=== PATIENT | male | born 1945 | race Caucasian/White ===

== ENCOUNTER 2018-11-26 09:48 | Emergency (ER) | payer OTHER, MEDICARE ==
[2018-11-26 10:08] VITALS: TEMP 98.5; BMI 27.8
[2018-11-26 11:37] LABS: BASO % 0.6 % (0-2.0); EOS % 1.8 % (0-4.5); HEMATOCRIT 40.9 % (35.4-49); HEMOGLOBIN 14.4 GM/dL (11.7-16.9); LYMPH % 18.9 % (8-40); MCH 32.8 pg (25.7-33.7); MCHC 35.3 g/dl (32.0-35.9); MEAN PLT VOLUME 9.1 fl (7.5-11.1); MONO % 7.6 % (3.8-10.2); NEUT % 71.1 % (42.8-82.8); PLATELET COUNT 200 K/MM3 (134-434); RDW 14.4 % (11.9-15.9); WHITE BLOOD COUNT 7.4 K/mm3 (4.0-10.0)
[2018-11-26 11:40] LABS: URINE APPEARANCE CLEAR; URINE BILIRUBIN NEGATIVE (<2.0 mg/dL); URINE COLOR LTYELLOW; URINE GLUCOSE (UA) NEGATIVE (NEGATIVE); URINE KETONE NEGATIVE (NEGATIVE); URINE LEUK ESTERASE NEGATIVE (NEGATIVE); URINE NITRITE NEGATIVE (NEGATIVE); URINE PROTEIN NEGATIVE (NEGATIVE); URINE UROBILINOGEN NEGATIVE mg/dL (0.2-1.0)
--- NOTE | 2018-11-26 12:11 | PDOC ---
History of Present Illness - General Chief Complaint: Pain, Acute Stated Complaint: ABD PAIN Time Seen by Provider: 11/26/18 10:30 History Source: Patient Exam Limitations: No Limitations - History of Present Illness Travel History: No Initial Comments: 11/26/18 12:02 73-year-old male with history of bleeding ulcer presents to ED with complaints of left lower quadrant intermittent sharp cramping pain for the past 4 days without associated symptoms such as nausea vomiting diarrhea constipation, fever , chills or urinary complaints. Patient states last bowel movement was 2 days ago in normal consistency. Patient denies GI surgery for bleeding ulcer. 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 Patient also states history of H. pylori gastritis and hypertension Timing/Duration: reports: intermittent Quality: reports: mild, cramping Abdominal Pain Onset Location: reports: LLQ Pain Radiation: reports: no radiation Activities at Onset: reports: none Aggravating Factors: improves with: None Alleviating Factors: improves with: None Past History - Travel Traveled outside of the country in the last 30 days: No Close contact w/someone who was outside of country & ill: No - Past Medical History Allergies/Adverse Reactions: Allergies Allergy/AdvReac Type Severity Reaction Status Date / Time pseudoephedrine HCl Allergy Verified 11/26/18 10:43 [From Brian] Home Medications: Ambulatory Orders NK [No Known Home Medication] 11/26/18 Anemia: Yes Asthma: No Cancer: No Cardiac Disorders: No CVA: No COPD: No CHF: No Dementia: No Diabetes: No GI Disorders: Yes (ULCER,GASTRITIS, H.PYLORI) Disorders: No HTN: Yes Hypercholesterolemia: No Kidney Stones: Yes (?) Liver Disease: No Seizures: No Thyroid Disease: No - Surgical History Abdominal Surgery: No Appendectomy: No Cardiac Surgery: No Cholecystectomy: No Lung Surgery: No Neurologic Surgery: No Orthopedic Surgery: Yes (RIGHT SHOULDER) - Suicide/Smoking/Psychosocial Hx Smoking Status: Yes Smoking History: Never smoked Have you smoked in the past 12 months: No Number of Cigarettes Smoked Daily: 0 If you are a former smoker, when did you quit?: 2000 Information on smoking cessation initiated: No Hx Alcohol Use: No Drug/Substance Use Hx: No Substance Use Type: None Hx Substance Use Treatment: No *Physical Exam - Vital Signs Last Vital Signs Temp Pulse Resp BP Pulse Ox 98.5 F 74 16 165/89 100 11/26/18 10:06 11/26/18 10:06 11/26/18 10:06 11/26/18 10:06 11/26/18 10:06 Moderate Sedation - Procedure Monitoring Vital Signs: Procedure Monitoring Vital Signs Temperature 98.5 F 11/26/18 10:06 Pulse Rate 74 11/26/18 10:06 Respiratory Rate 16 11/26/18 10:06 Blood Pressure 165/89 11/26/18 10:06 O2 Sat by Pulse Oximetry (%) 100 11/26/18 10:06 ED Treatment Course - LABORATORY CBC & Chemistry Diagram: 11/26/18 11:10 11/26/18 11:10 - RADIOLOGY Radiology Studies Ordered: Category Date Time Status ABDOMEN & PELVIS CT WITH CONTR [CT] Stat CT Scan 11/26/18 10:43 Ordered Medical Decision Making - Medical Decision Making 11/26/18 12:04 Chief complaint. Left lower quadrant pain without associated symptoms the past 4 days. Patient history of gastritis H. pylori and bleeding ulcer. Patient had renal ultrasound done approximately 2 weeks ago which showed a right renal cysts Exam: Patient left lower quadrant tenderness with deep palpation. No testicular involvement. No CVA tenderness. Plan: Urinalysis, CBC, comp and abdominal CT. 11/26/18 13:05 Laboratory Tests 11/26/18 11/26/18 11/26/18 11:10 11:10 11:10 WBC 7.4 Hgb 14.4 Hct 40.9 D Absolute Neuts (auto) 5.3 Neutrophils % 71.1 Sodium 140 Potassium 4.6 Chloride 107 Carbon Dioxide 28 Anion Gap 5 L BUN 22 H Creatinine 1.5 H Random Glucose 85 Total Bilirubin 1.0 AST 16 ALT 18 Albumin 3.8 Urine Ketones Negative Urine Nitrite Negative Ur Leukocyte Esterase Negative Patient ordered for 1 L of normal saline prior to CT for CT with IV contrast 11/26/18 15:07 Laboratory Tests 11/26/18 11/26/18 11/26/18 11:10 11:10 11:10 WBC 7.4 Hgb 14.4 Hct 40.9 D Absolute Neuts (auto) 5.3 Neutrophils % 71.1 Sodium 140 Potassium 4.6 Chloride 107 Carbon Dioxide 28 Anion Gap 5 L BUN 22 H Creatinine 1.5 H Random Glucose 85 Calcium 8.8 Total Bilirubin 1.0 AST 16 ALT 18 Alkaline Phosphatase 84 Total Protein 7.0 Albumin 3.8 Urine Ketones Negative Urine Nitrite Negative Ur Leukocyte Esterase Negative Post CT IVF infusing. *DC/Admit/Observation/Transfer Diagnosis at time of Disposition: Left lower quadrant abdominal tenderness - Discharge Dispostion Disposition: HOME Condition at time of disposition: Good - Referrals Referrals: Mario Alberto Carey [Primary Care Provider] - - Patient Instructions Printed Discharge Instructions: DI for Abdominal Pain-Adult Additional Instructions: Please drink plenty of fluids and eat a well balanced diet including high fiber fluid Follow up with your PMD and district customs director. - Post Discharge Activity Forms/Work/School Notes: Back to Work
[2018-11-26 12:17] LABS: ALBUMIN 3.8 g/dl (3.4-5.0); ALK PHOS 84 U/L (45-117); ANION GAP 5 MMOL/L (8-16); BLOOD UREA NITROGEN 22 mg/dL (7-18); CALCIUM 8.8 mg/dL (8.5-10.1); CHLORIDE 107 mmol/L (98-107); CO2 28 mmol/L (21-32); CREATININE 1.5 mg/dL (0.55-1.3); GLUCOSE,RANDOM 85 mg/dL (74-106); POTASSIUM 4.6 mmol/L (3.5-5.1); SGOT/AST 16 U/L (15-37); SGPT/ALT 18 U/L (13-61); SODIUM 140 mmol/L (136-145)
[2018-11-26] MEDS ORDERED: SODIUM CHLORIDE 1,000 ML IV STA ×2 (12:45→14:24)
[2018-11-26 15:40] VITALS: BP 181/97; PULSE 58
== END 2018-11-26 15:49 | disposition home or self-care (01) ==
LOC: JER 09:48
PROC: 3E0337Z Introduction of Electrolytic and Water Balance Substance into Peripheral Vein, Percutaneous Approach (ICD-10-PCS; principal; 2018-11-26)
DX: R10.814 Left lower quadrant abdominal tenderness (principal); R10.32 Left lower quadrant pain; Z87.19 Personal history of other diseases of the digestive system
CPT/HCPCS: 36415; 74177-TC; 80053; 81003; 85025; 87086; 96360; 96361; 99283-25; J7030

== ENCOUNTER 2021-05-25 15:23 | Emergency (ER) | payer OTHER, MEDICARE ==
[2021-05-25 15:30] VITALS: BMI 25.3
[2021-05-25 16:50] LABS: BASO % 0.5 % (0-2.0); EOS % 4.4 % (0-4.5); HEMATOCRIT 39.1 % (35.4-49); HEMOGLOBIN 13.6 GM/dL (11.7-16.9); LYMPH % 19.1 % (8-40); MCH 32.2 pg (25.7-33.7); MCHC 34.8 g/dl (32.0-35.9); MEAN CELL VOLUME 92.7 fl (80-96); MEAN PLT VOLUME 9.2 fl (7.5-11.1); MONO % 8.4 % (3.8-10.2); NEUT % 67.6 % (42.8-82.8); PLATELET COUNT 193 10^3/uL (134-434); RBC 4.22 M/mm3 (4.00-5.60); RDW 14.2 % (11.9-15.9)
[2021-05-25 16:57] LABS: VENOUS BASE EXCESS -1.9 mmol/L (-2-2); VENOUS O2 SATURATION 33.8 % (70-80); VENOUS PCO2 50.6 mmHg (38-52); VENOUS PH 7.31 (7.310-7.410)
[2021-05-25 17:19] LABS: ALBUMIN 3.5 g/dl (3.4-5.0); BLOOD UREA NITROGEN 28.5 mg/dL (7-18); CALCIUM 8.4 mg/dL (8.5-10.1)
[2021-05-25 17:22] LABS: CREATININE 1.6 mg/dL (0.55-1.3)
[2021-05-25 17:24] LABS: BILIRUBIN,TOTAL 0.5 mg/dL (0.2-1); TOT PROT 6.4 g/dl (6.4-8.2)
[2021-05-25 18:00] VITALS: BP 152/98; PULSE 85; TEMP 97.9
[2021-05-25] MEDS ORDERED: ALBUTEROL SO4 2.5/IPRATROPIUM 0.5 INH SOL 3 ML VIAL.NEB. NEB ONE ×3 (18:00→18:11)
[2021-05-25] MEDS ORDERED: ALBUTEROL SO4 HFA INHALER IH ONE ×3 (18:06→18:11)
== END 2021-05-25 18:43 ==
LOC: JER 15:23
PROC: 3E0F7GC Introduction of Other Therapeutic Substance into Respiratory Tract, Via Natural or Artificial Opening (ICD-10-PCS; principal; 2021-05-25)
DX: J01.80 Other acute sinusitis (principal)
CPT/HCPCS: 36415; 71046-TC-FY; 80053; 82803; 84484; 85025; 87804; 93005; 93010; 99285-25; C9803; U0003; U0005

== ENCOUNTER 2021-05-31 10:40 | Emergency (ER) | payer OTHER, MEDICARE ==
[2021-05-31 10:47] VITALS: TEMP 98; BMI 25.3
[2021-05-31] MEDS ORDERED: METOCLOPRAMIDE HCL INJECTION 10 MG/2 ML VIAL IVPB ONE (11:56)
[2021-05-31] MEDS ORDERED: SODIUM CHLORIDE 1,000 ML IV STA (11:56)
[2021-05-31] MEDS ORDERED: ACETAMINOPHEN 1000 MG/100 ML BAG IVPB ONE (11:56)
[2021-05-31] MEDS ORDERED: METOCLOPRAMIDE HCL INJECTION 10 MG/2 ML VIAL ONE (12:07)
[2021-05-31 12:26] LABS: BASO % 0.3 % (0-2.0); EOS % 0.3 % (0-4.5); HEMATOCRIT 37.9 % (35.4-49); HEMOGLOBIN 13.1 GM/dL (11.7-16.9); LYMPH % 19.7 % (8-40); MCH 31.7 pg (25.7-33.7); MCHC 34.5 g/dl (32.0-35.9); MEAN CELL VOLUME 91.7 fl (80-96); MEAN PLT VOLUME 8.9 fl (7.5-11.1); MONO % 9.6 % (3.8-10.2); NEUT % 70.1 % (42.8-82.8); PLATELET COUNT 222 10^3/uL (134-434); RBC 4.13 M/mm3 (4.00-5.60); RDW 14.4 % (11.9-15.9); WHITE BLOOD COUNT 12.7 K/mm3 (4.0-10.0)
[2021-05-31 12:32] LABS: INR 0.95 (0.83-1.09); PROTHROMBIN TIME (PATIENT) 11.7 SEC (9.7-13.0)
[2021-05-31 12:46] LABS: CALCIUM 8.4 mg/dL (8.5-10.1)
[2021-05-31 12:47] LABS: BLOOD UREA NITROGEN 32.1 mg/dL (7-18)
[2021-05-31 12:50] LABS: CREATININE 1.5 mg/dL (0.55-1.3)
[2021-05-31 12:51] LABS: BILIRUBIN,TOTAL 0.6 mg/dL (0.2-1)
[2021-05-31 12:52] LABS: TOT PROT 6.2 g/dl (6.4-8.2)
[2021-05-31 13:12] LABS: ALBUMIN 3.2 g/dl (3.4-5.0)
[2021-05-31 16:04] VITALS: BP 142/75; PULSE 68
== END 2021-05-31 16:12 | disposition home or self-care (01) ==
LOC: JER 10:40
PROC: 3E0333Z Introduction of Anti-inflammatory into Peripheral Vein, Percutaneous Approach (ICD-10-PCS; principal; 2021-05-31)
PROC: 3E033GC Introduction of Other Therapeutic Substance into Peripheral Vein, Percutaneous Approach (ICD-10-PCS; 2021-05-31)
PROC: 3E0337Z Introduction of Electrolytic and Water Balance Substance into Peripheral Vein, Percutaneous Approach (ICD-10-PCS; 2021-05-31)
DX: J01.30 Acute sphenoidal sinusitis, unspecified (principal); R07.89 Other chest pain
CPT/HCPCS: 36415; 70450-TC; 71046-TC-FY; 80053; 82550; 84484; 85025; 85610; 93005; 93010; 99285-25; C9803; J0131; U0003; U0005

== ENCOUNTER 2021-07-01 08:48 | Emergency (ER) | payer OTHER, MEDICARE ==
[2021-07-01 09:00] VITALS: BP 163/96; PULSE 67; TEMP 97.5; BMI 25.7
== END 2021-07-01 09:35 | disposition home or self-care (01) ==
LOC: JER 08:48
DX: R09.81 Nasal congestion (principal); J32.2 Chronic ethmoidal sinusitis
CPT/HCPCS: 99283-25

== ENCOUNTER 2022-09-07 08:48 | Inpatient (IN) | payer MEDICARE, OTHER ==
[2022-09-07] MEDS ORDERED: SODIUM CHLORIDE 0.9% 500 ML INFUS.BAG IV ONE (11:45)
[2022-09-07] MEDS ORDERED: ACETAMINOPHEN 1000 MG/100 ML BAG IVPB ONE (11:45)
[2022-09-07] MEDS ORDERED: ACETAMINOPHEN INJECTION 100 ML IVPB ONE (11:58)
[2022-09-07 12:28] LABS: URINE APPEARANCE Clear; URINE BILIRUBIN 1+ (NEGATIVE); URINE COLOR Yellow; URINE GLUCOSE (UA) Negative (NEGATIVE); URINE KETONE Trace (NEGATIVE); URINE LEUK ESTERASE 1+ (NEGATIVE); URINE NITRITE Negative (NEGATIVE); URINE PROTEIN 2+ (NEGATIVE)
[2022-09-07 12:30] LABS: BASO % 0.3 % (0-2.0); EOS % 0.1 % (0-4.5); HEMATOCRIT 40.5 % (35.4-49); HEMOGLOBIN 13.9 GM/dL (11.7-16.9); LYMPH % 5.6 % (8-40); MCH 31.2 pg (25.7-33.7); MCHC 34.3 g/dl (32.0-35.9); MEAN CELL VOLUME 90.9 fl (80-96); MEAN PLT VOLUME 9.7 fl (7.5-11.1); MONO % 5.5 % (3.8-10.2); NEUT % 88.5 % (42.8-82.8); PLATELET COUNT 166 10^3/uL (134-434); RBC 4.45 M/mm3 (4.00-5.60); RDW 13.7 % (11.9-15.9); WHITE BLOOD COUNT 8.9 K/mm3 (4.0-10.0)
[2022-09-07 12:45] LABS: ALBUMIN 3.5 g/dl (3.4-5.0); BLOOD UREA NITROGEN 41.5 mg/dL (7-18); CALCIUM 9.2 mg/dL (8.5-10.1); MAGNESIUM 2.3 mg/dL (1.8-2.4)
[2022-09-07 12:49] LABS: CREATININE 2.9 mg/dL (0.55-1.3)
[2022-09-07 12:50] LABS: TOT PROT 6.9 g/dl (6.4-8.2)
[2022-09-07] MEDS ORDERED: CEFTRIAXONE 1,000 MG in DEXTROSE 5%-WATER - 50 ML IVPB ONE (13:17)
[2022-09-07] MEDS ORDERED: CEFTRIAXONE 1 GM/50 ML BAG ONE (13:35)
[2022-09-07] MEDS ORDERED: SODIUM CHLORIDE 1,000 ML IV SCH (13:45)
[2022-09-07 14:53] LABS: URINE BACTERIA 1+ /uL (0-1359); URINE WBC 40-50 /uL (0-25.8)
[2022-09-07 15:57] LABS: URINE UREA NITROGEN 648 mg/dL (350-1000)
[2022-09-08 02:15] VITALS: BMI 26.6
[2022-09-08] MEDS: CEFTRIAXONE 1 GM in DEXTROSE 5%-WATER - 50 ML IVPB SCH (09:24)
[2022-09-08] MEDS: [UNRECOGNIZED DRUG - OTHER] NS SCH ×2 (09:25→22:07)
[2022-09-08] MEDS: AZELASTINE HCL 137 MCG/0.137 ML NS SCH ×2 (09:25→22:07)
[2022-09-08] MEDS ORDERED: PANTOPRAZOLE 40 MG TABLET PO SCH (10:00)
[2022-09-08 10:18] LABS: HEMATOCRIT 32.1 % (35.4-49); HEMOGLOBIN 11.3 GM/dL (11.7-16.9); MCH 31.9 pg (25.7-33.7); MCHC 35.3 g/dl (32.0-35.9); MEAN CELL VOLUME 90.3 fl (80-96); MEAN PLT VOLUME 9.4 fl (7.5-11.1); PLATELET COUNT 136 10^3/uL (134-434); RBC 3.56 M/mm3 (4.00-5.60); RDW 13.6 % (11.9-15.9); WHITE BLOOD COUNT 6.8 K/mm3 (4.0-10.0)
[2022-09-08 11:10] LABS: BLOOD UREA NITROGEN 37.4 mg/dL (7-18); CALCIUM 8.4 mg/dL (8.5-10.1)
[2022-09-08 11:12] LABS: ANISOCYTOSIS 0; HELMET CELLS 0; HOWELL-JOLLY BODIES 0; MACROCYTOSIS 0; OVALOCYTE 0; ROULEAU 0; SICKELED CELLS 0; TARGET CELLS 0; TEAR DROP CELLS 0; TOXIC GRANULATION 0
[2022-09-08 11:13] LABS: CREATININE 2.6 mg/dL (0.55-1.3); PHOSPHOROUS 2.1 mg/dL (2.5-4.9); URIC ACID 7.8 mg/dL (2.6-7.2)
[2022-09-08 11:16] LABS: BILIRUBIN,TOTAL 0.6 mg/dL (0.2-1); TOT PROT 5.4 g/dl (6.4-8.2)
[2022-09-08 11:18] LABS: ALBUMIN 2.7 g/dl (3.4-5.0)
[2022-09-08] MEDS ORDERED: SODIUM CHLORIDE 1,000 ML IV SCH (12:00)
[2022-09-08] MEDS: NAPH,MB-DB/K PH,MBDB POWDER PACKET PO SCH ×2 (13:21→22:10)
[2022-09-08] MEDS: ACETAMINOPHEN 325 MG TABLET (FP) PO PRN ×2 (13:26→22:10)
[2022-09-09] MEDS: NAPH,MB-DB/K PH,MBDB POWDER PACKET PO SCH ×3 (06:43→21:51)
[2022-09-09] MEDS: ACETAMINOPHEN 325 MG TABLET (FP) PO PRN ×2 (06:44→21:30)
[2022-09-09] MEDS: AZELASTINE HCL 137 MCG/0.137 ML NS SCH ×2 (09:56→21:51)
[2022-09-09] MEDS: [UNRECOGNIZED DRUG - OTHER] NS SCH ×2 (09:56→21:51)
[2022-09-09] MEDS: ENOXAPARIN NA (PORCINE) 30 MG/0.3 ML DISP.SYRIN SQ SCH (09:56)
[2022-09-09] MEDS: CEFTRIAXONE 1 GM in DEXTROSE 5%-WATER - 50 ML IVPB SCH (10:01)
[2022-09-09 10:21] LABS: HEMOGLOBIN 11.4 GM/dL (11.7-16.9); MCH 30.9 pg (25.7-33.7); MCHC 34.7 g/dl (32.0-35.9); MEAN PLT VOLUME 9.8 fl (7.5-11.1); PLATELET COUNT 154 10^3/uL (134-434); RDW 13.8 % (11.9-15.9)
[2022-09-09 11:24] LABS: CALCIUM 8.1 mg/dL (8.5-10.1)
[2022-09-09 11:25] LABS: ALBUMIN 2.4 g/dl (3.4-5.0); MAGNESIUM 2.1 mg/dL (1.8-2.4)
[2022-09-09 11:27] LABS: CREATININE 2.2 mg/dL (0.55-1.3)
[2022-09-09 11:28] LABS: PHOSPHOROUS 2.8 mg/dL (2.5-4.9)
[2022-09-09 11:29] LABS: TOT PROT 5.3 g/dl (6.4-8.2)
[2022-09-09 11:30] LABS: BILIRUBIN,TOTAL 0.4 mg/dL (0.2-1)
[2022-09-09] MEDS: amLODIPine BESYLATE 5 MG TABLET (FP) PO SCH (11:41)
[2022-09-09] MEDS: SODIUM CHLORIDE 0.45% 1,000 ML IV SCH ×2 (15:08→22:14)
[2022-09-10] MEDS: NAPH,MB-DB/K PH,MBDB POWDER PACKET PO SCH (05:29)
[2022-09-10 08:15] LABS: BASO % 0.3 % (0-2.0); EOS % 2.3 % (0-4.5); HEMATOCRIT 30.7 % (35.4-49); HEMOGLOBIN 10.9 GM/dL (11.7-16.9); LYMPH % 12.3 % (8-40); MCH 31.5 pg (25.7-33.7); MCHC 35.4 g/dl (32.0-35.9); MEAN CELL VOLUME 88.9 fl (80-96); MONO % 11.7 % (3.8-10.2); NEUT % 73.4 % (42.8-82.8); PLATELET COUNT 171 10^3/uL (134-434); RBC 3.46 M/mm3 (4.00-5.60); RDW 13.5 % (11.9-15.9); WHITE BLOOD COUNT 8.7 K/mm3 (4.0-10.0)
[2022-09-10 08:51] LABS: ALBUMIN 2.6 g/dl (3.4-5.0)
[2022-09-10 08:53] LABS: BLOOD UREA NITROGEN 29.1 mg/dL (7-18); CALCIUM 8.5 mg/dL (8.5-10.1); MAGNESIUM 2.2 mg/dL (1.8-2.4)
[2022-09-10 08:57] LABS: TOT PROT 5.2 g/dl (6.4-8.2)
[2022-09-10 09:00] LABS: BILIRUBIN,TOTAL 0.3 mg/dL (0.2-1)
[2022-09-10] MEDS: amLODIPine BESYLATE 5 MG TABLET (FP) PO SCH (09:53)
[2022-09-10] MEDS: ENOXAPARIN NA (PORCINE) 30 MG/0.3 ML DISP.SYRIN SQ SCH (09:53)
[2022-09-10] MEDS: CEFTRIAXONE 1 GM in DEXTROSE 5%-WATER - 50 ML IVPB SCH (09:53)
[2022-09-10] MEDS: AZELASTINE HCL 137 MCG/0.137 ML NS SCH ×2 (09:59→21:30)
[2022-09-10] MEDS: [UNRECOGNIZED DRUG - OTHER] NS SCH ×2 (09:59→21:30)
[2022-09-10] MEDS: PANTOPRAZOLE 40 MG TABLET PO SCH (14:09)
[2022-09-10] MEDS: SODIUM CHLORIDE 0.45% 1,000 ML IV SCH (21:32)
[2022-09-11] MEDS: CEFTRIAXONE 1 GM in DEXTROSE 5%-WATER - 50 ML IVPB SCH (09:36)
[2022-09-11] MEDS: SODIUM CHLORIDE 0.45% 1,000 ML IV SCH (09:42)
[2022-09-11] MEDS: AZELASTINE HCL 137 MCG/0.137 ML NS SCH ×2 (10:00→22:17)
[2022-09-11] MEDS: [UNRECOGNIZED DRUG - OTHER] NS SCH ×2 (10:00→22:17)
[2022-09-11] MEDS: MULTIVITAMINS (DAILY MVI) TABLET (FP) PO SCH (11:08)
[2022-09-11] MEDS: PANTOPRAZOLE 40 MG TABLET PO SCH (11:08)
[2022-09-11] MEDS: amLODIPine BESYLATE 5 MG TABLET (FP) PO SCH (11:08)
[2022-09-11] MEDS ORDERED: INSULIN (NOVOLOG) ASPART 100 UNITS/ML 10ML VIAL ONE (11:49)
[2022-09-11] MEDS: CEFUROXIME AXETIL 500 MG TABLET PO SCH (22:17)
[2022-09-12 08:52] VITALS: RESP 20
[2022-09-12] MEDS: amLODIPine BESYLATE 5 MG TABLET (FP) PO SCH (09:50)
[2022-09-12] MEDS: PANTOPRAZOLE 40 MG TABLET PO SCH (09:50)
[2022-09-12] MEDS: MULTIVITAMINS (DAILY MVI) TABLET (FP) PO SCH (09:50)
[2022-09-12] MEDS: CEFUROXIME AXETIL 500 MG TABLET PO SCH (09:51)
[2022-09-12] MEDS: AZELASTINE HCL 137 MCG/0.137 ML NS SCH (09:53)
[2022-09-12] MEDS: [UNRECOGNIZED DRUG - OTHER] NS SCH (09:53)
[2022-09-12] MEDS ORDERED: TAMSULOSIN HCL 0.4 MG CAP PO SCH (10:38)
[2022-09-12 10:59] LABS: CALCIUM 8.6 mg/dL (8.5-10.1)
[2022-09-12 11:00] LABS: BLOOD UREA NITROGEN 26.9 mg/dL (7-18)
[2022-09-12 14:53] VITALS: BP 142/81; PULSE 74; TEMP 98.1
== END 2022-09-12 16:17 | disposition home or self-care (01) | DRG 683 ==
LOC: JERFT 08:48 → JER 08:48 → JERBED 13:29 → OBSVTOIN 13:29 → J8W 09-08 01:53
PROVIDERS: ADMIT Internal Medicine; ATTEND Nurse Practitioner Acute Care
DX: N17.9 Acute kidney failure, unspecified (principal); N39.0 Urinary tract infection, site not specified; K21.9 Gastro-esophageal reflux disease without esophagitis; N12 Tubulo-interstitial nephritis, not specified as acute or chronic; B96.20 Unspecified Escherichia coli [E. coli] as the cause of diseases classified elsewhere; J32.9 Chronic sinusitis, unspecified; I12.9 Hypertensive chronic kidney disease with stage 1 through stage 4 chronic kidney disease, or unspecified chronic kidney disease; N18.30 Chronic kidney disease, stage 3 unspecified
CPT/HCPCS: 0241U-QW; 36415; 70450-TC; 71046-TC-FY; 74176-TC; 80048; 80053; 81003; 82272; 82570; 83735; 84100; 84156; 84300; 84540; 84550; 85025; 85027; 87086; 87186; 93005; 93010; 99285-25

== ENCOUNTER 2022-10-10 08:04 | Emergency (ER) | payer OTHER ==
[2022-10-10 08:31] VITALS: BMI 26.9
[2022-10-10] MEDS ORDERED: BENZOCAINE/MENTH/CETYLPYRD CL 1 EACH LOZENGE MM PRN (09:01)
[2022-10-10] MEDS ORDERED: KETOROLAC TROMETHAMINE 30 MG/1 ML VIAL IM ONE (09:01)
[2022-10-10 09:34] VITALS: BP 138/81; PULSE 74; RESP 14; TEMP 99.1
== END 2022-10-10 10:30 | disposition home or self-care (01) ==
LOC: JER 08:04
PROC: 3E0233Z Introduction of Anti-inflammatory into Muscle, Percutaneous Approach (ICD-10-PCS; principal; 2022-10-10)
DX: U07.1 COVID-19 (principal); J02.9 Acute pharyngitis, unspecified
CPT/HCPCS: 0241U-QW; 71046-TC-FY; 96372; 99284-25

== ENCOUNTER 2022-11-27 09:01 | Emergency (ER) | payer OTHER ==
[2022-11-27 09:19] VITALS: BP 164/90; PULSE 60; RESP 16; TEMP 98; BMI 26.4
[2022-11-27] MEDS ORDERED: ACETAMINOPHEN 1000 MG/100 ML BAG IVPB ONE (10:12)
[2022-11-27] MEDS ORDERED: LIDOCAINE 5% TOPICAL PATCH TP ONE (10:13)
[2022-11-27] MEDS ORDERED: LIDOCAINE 5% TOPICAL PATCH ONE (10:26)
[2022-11-27] MEDS ORDERED: ACETAMINOPHEN INJECTION 100 ML IVPB ONE (10:26)
[2022-11-27 11:04] LABS: BASO % 0.4 % (0-2.0); EOS % 3.5 % (0-4.5); HEMOGLOBIN 13.1 GM/dL (11.7-16.9); LYMPH % 22.6 % (8-40); MCH 31.4 pg (25.7-33.7); MCHC 34.5 g/dl (32.0-35.9); MEAN CELL VOLUME 90.9 fl (80-96); MEAN PLT VOLUME 8.8 fl (7.5-11.1); NEUT % 65.5 % (42.8-82.8); PLATELET COUNT 214 10^3/uL (134-434); RBC 4.17 M/mm3 (4.00-5.60); WHITE BLOOD COUNT 8.3 K/mm3 (4.0-10.0)
[2022-11-27 11:05] LABS: URINE APPEARANCE CLEAR; URINE BILIRUBIN NEGATIVE (NEGATIVE); URINE COLOR YELLOW; URINE GLUCOSE (UA) NEGATIVE (NEGATIVE); URINE KETONE NEGATIVE (NEGATIVE); URINE LEUK ESTERASE NEGATIVE (NEGATIVE); URINE NITRITE NEGATIVE (NEGATIVE); URINE PROTEIN NEGATIVE (NEGATIVE); URINE UROBILINOGEN 0.2 mg/dL (0.2-1.0)
[2022-11-27 11:24] LABS: ALBUMIN 3.7 g/dl (3.4-5.0); CALCIUM 8.9 mg/dL (8.5-10.1)
[2022-11-27 11:25] LABS: BLOOD UREA NITROGEN 36.5 mg/dL (7-18)
[2022-11-27 11:28] LABS: CREATININE 2.4 mg/dL (0.55-1.3)
[2022-11-27 11:29] LABS: BILIRUBIN,TOTAL 0.5 mg/dL (0.2-1)
[2022-11-27] MEDS ORDERED: LIDOCAINE PATCH REMOVAL MC SCH (22:00)
== END 2022-11-27 12:03 | disposition home or self-care (01) ==
LOC: JER 09:01
PROC: 3E0333Z Introduction of Anti-inflammatory into Peripheral Vein, Percutaneous Approach (ICD-10-PCS; principal; 2022-11-27)
DX: N20.0 Calculus of kidney (principal)
CPT/HCPCS: 36415; 73562-TC-RT-FY; 74176-TC; 80053; 81003; 85025; 87086; 96374; 99285-25

== ENCOUNTER 2024-01-20 07:22 | Observation (INO) | payer OTHER ==
[2024-01-20 07:38] VITALS: BMI 27.1
[2024-01-20 08:52] LABS: BASO % 0.6 % (0-2.0); HEMATOCRIT 44.5 % (35.4-49); HEMOGLOBIN 15.4 GM/dL (11.7-16.9); LYMPH % 16.4 % (8-40); MCH 31.7 pg (25.7-33.7); MCHC 34.6 g/dl (32.0-35.9); MEAN CELL VOLUME 91.6 fl (80-96); MEAN PLT VOLUME 9.1 fl (7.5-11.1); MONO % 6.8 % (3.8-10.2); NEUT % 73.2 % (42.8-82.8); PLATELET COUNT 206 10^3/uL (134-434); RBC 4.86 M/mm3 (4.00-5.60); RDW 14.3 % (11.9-15.9); WHITE BLOOD COUNT 9.1 K/mm3 (4.0-10.0)
[2024-01-20 08:57] LABS: INR 0.96 (0.83-1.09); PROTHROMBIN TIME (PATIENT) 11.1 SEC (9.7-13.0)
[2024-01-20 09:00] LABS: ACTIVATED PTT 31.2 SECONDS (25.2-36.5)
[2024-01-20 09:18] LABS: CALCIUM 9.1 mg/dL (8.5-10.1); POTASSIUM 4.4 mmol/L (3.5-5.1)
[2024-01-20 09:19] LABS: BLOOD UREA NITROGEN 30.5 mg/dL (7-18)
[2024-01-20 09:22] LABS: CREATININE 1.9 mg/dL (0.55-1.3)
[2024-01-20 09:24] LABS: BILIRUBIN,TOTAL 0.7 mg/dL (0.2-1); TOT PROT 7.2 g/dl (6.4-8.2)
[2024-01-20] MEDS ORDERED: HEPARIN NA (PORCINE) 5,000 UNITS/ML 1ML VIAL ONE (11:52)
[2024-01-20] MEDS ORDERED: HEPARIN INFUSION - 25,000 UNITS/500 ML INFUS.BAG IVPB ONE (11:52)
[2024-01-20] MEDS ORDERED: HEPARIN NA (PORCINE) 5,000 UNITS/ML 1ML VIAL IVPUSH PRN ×2 (11:57→11:58)
[2024-01-20] MEDS: HEPARIN NA (PORCINE) 5,000 UNITS/ML 1ML VIAL IVPUSH ONE (12:00)
[2024-01-20] MEDS: HEPARIN INFUSION - 25,000 UNITS/500 ML INFUS.BAG IVPB SCH (12:05)
[2024-01-20] MEDS ORDERED: ASPIRIN 81 MG CHEWABLE TABLETS ONE (12:31)
[2024-01-20] MEDS: ASPIRIN 81 MG CHEWABLE TABLETS PO ONE (12:34)
[2024-01-20] MEDS ORDERED: NITROGLYCERIN SUBLINGUAL 1/150 0.4 MG TAB SL PRN (13:29)
[2024-01-20] MEDS: SODIUM CHLORIDE 0.45% 1,000 ML IV SCH (17:29)
[2024-01-20] MEDS: ATORVASTATIN CA 80 MG TABLET (FP) PO SCH (21:09)
[2024-01-20] MEDS: METOPROLOL TARTRATE 25 MG TABLET (FP) PO SCH (21:09)
[2024-01-21 07:31] LABS: BASO % 0.5 % (0-2.0); EOS % 3.8 % (0-4.5); HEMATOCRIT 39.4 % (35.4-49); HEMOGLOBIN 13.9 GM/dL (11.7-16.9); LYMPH % 19.1 % (8-40); MCHC 35.2 g/dl (32.0-35.9); MEAN CELL VOLUME 91.1 fl (80-96); MEAN PLT VOLUME 9.4 fl (7.5-11.1); MONO % 7.4 % (3.8-10.2); NEUT % 69.2 % (42.8-82.8); PLATELET COUNT 193 10^3/uL (134-434); RBC 4.33 M/mm3 (4.00-5.60); RDW 14.6 % (11.9-15.9); WHITE BLOOD COUNT 8.3 K/mm3 (4.0-10.0)
[2024-01-21 07:53] LABS: CREATININE 1.8 mg/dL (0.55-1.3); MAGNESIUM 2.1 mg/dL (1.8-2.4)
[2024-01-21 07:55] LABS: TOT PROT 6.3 g/dl (6.4-8.2)
[2024-01-21 07:58] LABS: BLOOD UREA NITROGEN 39.7 mg/dL (7-18)
[2024-01-21 07:59] LABS: ALBUMIN 3.4 g/dl (3.4-5.0); BILIRUBIN,TOTAL 1.1 mg/dL (0.2-1)
[2024-01-21 08:02] LABS: PHOSPHOROUS 3.4 mg/dL (2.5-4.9)
[2024-01-21 08:06] LABS: POTASSIUM 4.4 mmol/L (3.5-5.1)
[2024-01-21] MEDS: TAMSULOSIN HCL 0.4 MG CAP PO SCH (08:12)
[2024-01-21] MEDS: ASPIRIN COATED 81 MG TABLET.EC PO SCH (10:17)
[2024-01-21] MEDS: amLODIPine BESYLATE 5 MG TABLET (FP) PO SCH (10:17)
[2024-01-21] MEDS: PANTOPRAZOLE 40 MG TABLET PO SCH (10:18)
[2024-01-21] MEDS: SODIUM CHLORIDE 0.45% 1,000 ML IV SCH (12:15)
[2024-01-22 07:47] LABS: BASO % 0.6 % (0-2.0); EOS % 4.1 % (0-4.5); HEMATOCRIT 38.5 % (35.4-49); HEMOGLOBIN 13.5 GM/dL (11.7-16.9); LYMPH % 21.8 % (8-40); MCH 31.8 pg (25.7-33.7); MEAN CELL VOLUME 90.8 fl (80-96); MEAN PLT VOLUME 9.3 fl (7.5-11.1); MONO % 8.3 % (3.8-10.2); NEUT % 65.2 % (42.8-82.8); PLATELET COUNT 184 10^3/uL (134-434); RBC 4.24 M/mm3 (4.00-5.60); RDW 14.5 % (11.9-15.9)
[2024-01-22 07:59] LABS: POTASSIUM 4.2 mmol/L (3.5-5.1)
[2024-01-22 08:02] LABS: BLOOD UREA NITROGEN 31.3 mg/dL (7-18); CALCIUM 9.2 mg/dL (8.5-10.1); MAGNESIUM 2.2 mg/dL (1.8-2.4)
[2024-01-22 08:03] LABS: ALBUMIN 3.4 g/dl (3.4-5.0)
[2024-01-22 08:06] LABS: CREATININE 1.9 mg/dL (0.55-1.3); PHOSPHOROUS 3.3 mg/dL (2.5-4.9)
[2024-01-22 08:07] LABS: TOT PROT 6.2 g/dl (6.4-8.2)
[2024-01-22] MEDS ORDERED: REGADENOSON 0.4 MG/5 ML PRE-FILLED SYRINGE IVPUSH ONE (12:04)
[2024-01-22] MEDS: REGADENOSON 0.4 MG/5 ML PRE-FILLED SYRINGE IVPUSH ONE (12:15)
[2024-01-22] MEDS: AMINOPHYLLINE 250 MG/10 ML VIAL IVPUSH ONE (12:19)
[2024-01-22] MEDS ORDERED: AMINOPHYLLINE 250 MG/10 ML VIAL ONE (12:25)
[2024-01-22] MEDS: HEPARIN NA (PORCINE) 5,000 UNITS/ML 1ML VIAL SQ SCH (13:16)
[2024-01-22 14:44] VITALS: BP 135/90; PULSE 56; RESP 17; TEMP 97.2
== END 2024-01-22 17:53 | disposition home or self-care (01) ==
LOC: JER 07:22 → JERBED 11:36 → UNDOADMOB 11:36 → INTOOBSV 13:30 → OBSVTOIN 13:30 → J4W 14:43 → JERBED 14:43 → J4W 01-21 14:37 → JERBED 01-21 14:47 → J4W 01-21 14:47
PROVIDERS: ADMIT Internal Medicine; ATTEND Internal Medicine
PROC: 3E033GC Introduction of Other Therapeutic Substance into Peripheral Vein, Percutaneous Approach (ICD-10-PCS; principal; 2024-01-21)
PROC: 3E0337Z Introduction of Electrolytic and Water Balance Substance into Peripheral Vein, Percutaneous Approach (ICD-10-PCS; 2024-01-21)
DX: R07.89 Other chest pain (principal); R79.89 Other specified abnormal findings of blood chemistry; R94.31 Abnormal electrocardiogram [ECG] [EKG]; E78.5 Hyperlipidemia, unspecified; N18.9 Chronic kidney disease, unspecified; N40.0 Benign prostatic hyperplasia without lower urinary tract symptoms; K21.9 Gastro-esophageal reflux disease without esophagitis; R10.814 Left lower quadrant abdominal tenderness; N28.89 Other specified disorders of kidney and ureter; R06.02 Shortness of breath; Z87.891 Personal history of nicotine dependence; Z88.8 Allergy status to other drugs, medicaments and biological substances
CPT/HCPCS: 0241U-QW; 36415; 71045-TC-FY; 78452-TC; 80053; 80061; 83036; 83735; 83880; 84100; 84484; 85025; 85379; 85610; 85730; 93005; 93010; 93017; 93306-TC; 93970-TC; 96361; 96365; 96375; 99285-25; A9502; G0378; J1644; J2785